=== PATIENT | female | born 1975 | race Caucasian/White ===

== ENCOUNTER → 2019-05-13 12:26 | Outpatient (CLI) | payer BC | END | disposition home or self-care (01) | LOC: D.MRI 12:26 | PROVIDERS: ATTEND Orthopaedic Surgery | DX: M67.431 Ganglion, right wrist (principal) ==

== ENCOUNTER 2019-09-02 08:10 | Day surgery (SDC) | payer BC ==
[2019-08-28 09:54] LABS: HEMATOCRIT 44.5 % (36.0-48.0); HEMOGLOBIN 15.2 g/dL (12-16); MCH 29.5 pg (26.0-34.0); MCHC 34.2 g/dL (31.0-37.0); MCV 86.2 fL (80.0-100.0); MEAN PLATELET VOLUME 9.5 fL (7.4-10.4); RBC 5.16 10x6/uL (4.00-5.40); RDW 12.5 % (11.5-14.5); WBC 5.7 10x3/uL (4.8-10.8)
[~2019-09-02] VITALS: Ht 170.2 cm; Wt 68.0 kg
[2019-09-02 08:37] VITALS: BP 108/58; Ht 170.2 cm; Wt 68.0 kg
[2019-09-02] MEDS ORDERED: MEPERIDINE HCL50 MG PO (12:22)
--- NOTE | 2019-09-02 13:37 | NUR ---
1324 RIGHT WRIST COVERED WITH BANDAGE. UNABLE TO PALPATE RADIAL PULSE DUE TO DRESSING. FINGERS PINK. WARM TO TOUCH
--- NOTE | 2019-09-02 14:33 | NUR ---
1400 IV DC'D. CATHETER TIP INTACT. NO BLEEDING AT SITE. BANDAID APPLIED.
--- NOTE | 2019-09-03 09:45 | OP ---
PATIENT NAME: SHAKIRA CABALLERO MEDICAL RECORD: [id number] :71 LOCATION:D.OPS ADMISSION DATE: SURGEON: DARREN FREEDMAN MD DATE OF OPERATION: 09/02/2019 PREOPERATIVE DIAGNOSES: 1. 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 2. Ganglion cyst of the right wrist. POSTOPERATIVE DIAGNOSES: 1. 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 2. Ganglion cyst of the right wrist. PROCEDURES: 1. Right cubital tunnel release of the upper extremity. 2. Excision of a complex bilobate ganglion of the ulnar aspect of the right wrist. SURGEON: Darren Freedman MD FORENSIC SPECIALIST: KRYSTINA Bird INTRAOPERATIVE COMPLICATIONS: None. SUMMARY OF PATHOLOGIC FINDINGS: The ulnar nerve was essentially restricted at both the proximal aspect and the distal aspect at the muscular fascial junction of the cubital canal. The distal ganglion was found to be bilobate and required extensive dissection. OPERATIVE SUMMARY IN DETAIL: After obtaining the appropriate preoperative orthopedic surgery consent as well as anesthetic consultation, evaluation and clearance, the patient was brought to the operating room and placed on the operating table in a supine position. After general laryngeal mask airway was administered, tourniquet was placed on the proximal aspect of the right upper extremity. Right upper extremity was then prepped and draped in routine sterile fashion. After the appropriate timeout was taken and agreed upon by all, the upper extremity was elevated and exsanguinated, tourniquet inflated to 250 mmHg. Attention was first turned to the ganglion cyst. Transverse incision was made over the ganglion cyst. Dissection was carried down both proximally, medially, laterally and distally. When the whole ganglion cyst had been isolated, it did emanate from the FCR into the carpal tunnel. It was excised in its entirety and sent to pathology for permanent section. As this did appear to arise from a tendon sheath, there was no capsular opening to close. Wound was copiously irrigated and closed with 4-0 Prolene in mattress fashion. It was locally anesthetized. Attention was then turned to the cubital canal. Incision was made between the medial epicondyle in the olecranon tip. This was gently taken down to the fascial layer, which was incised to reveal an ulnar nerve that was primarily compressed both proximally and distally. After careful dissection around the nerve, care was taken to avoid any damage to the motor branches to the proximal flexure mass. Dissection was then carried more proximally to release the leash and result in a very released ulnar nerve. Again, this wound was copiously irrigated and closed with 2-0 Vicryl followed by 4-0 Prolene in a running fashion done by Rashid Steven. The area was locally anesthetized, OPERATIVE REPORT [id number] SHAKIRA CABALLERO tourniquet was deflated. The patient was awakened, taken to recovery room in stable condition. All final needle and sponge counts were correct. TRANSINT:[id number] Voice Confirmation ID: [id number] DOCUMENT ID: [id number] TANO ELMORE, DARREN PURVIS at 0945 CC: [id number] DICTATION DATE: 09/03/19 0855 CAGE UNLOADER: 09/03/19 0921 [facility] [place] 09/02/19 [address] [id number] [place] [id number]
== END 2019-09-02 14:36 | disposition home or self-care (01) ==
LOC: D.OPS 08:10
PROVIDERS: Anesthesiology; ATTEND Orthopaedic Surgery
DX: G56.21 Lesion of ulnar nerve, right upper limb (principal); M67.431 Ganglion, right wrist